=== PATIENT | female | born 1975 | race Caucasian/White ===

== ENCOUNTER → 2024-02-16 | Outpatient (CLI) | payer MEDICAID ==
[~2024-02-16] VITALS: Ht 184.2 cm; Wt 67.6 kg
[2024-02-16] MEDS: albuterol 2.5 MG/3 ML nebule NEB PRN (13:26)
[2024-02-16 14:08] VITALS: PULSE 82; RESP 13; O2SAT 96
== END | disposition home or self-care (01) ==
LOC: RT 12:45
PROVIDERS: ATTEND Nurse Practitioner Primary Care
DX: R05.3 Chronic cough (principal)
CPT/HCPCS: 94010; 94760